=== PATIENT | male | born 1990 | race Caucasian/White ===

== ENCOUNTER 2019-08-30 21:16 | Inpatient (IN) | payer SELFPAY ==
[2019-08-30] MEDS ORDERED: Ondansetron PF 4 MG/2 ML Vial ONE (21:37)
[2019-08-30 22:19] LABS: Hemoglobin 16.9 g/dL (14.0-18.0); Mean Corpuscular HGB CONC 33.4 g/dL (32.0-36.0); Mean Corpuscular Hemoglobin 26.6 pg (27.0-31.0); Mean Corpuscular Volume 79.7 fL (78.0-98.0); Mean Platelet Volume 9.2 fL (7.4-10.4); Platelet Count 304 thou/uL (130-400); Red Blood Cell (RBC) Count 6.34 mill/uL (4.70-6.10); White Blood Cell (WBC) Count 21.9 thou/uL (4.8-10.8)
[2019-08-30 22:27] LABS: Band 18 % (5-11); Lymphocytes 2 % (21-51); MDiff Complete? YES; Monocytes 3 % (0-10); Neutrophil 77 % (42-75); Platelet Morphology Comment Appears Adequate
[2019-08-30 23:04] LABS: Bacteria/HPF 3+ HPF (None Seen); Bilirubin 1+ (Negative); Blood, Urine 2+ (Negative); Clarity Extra Turbid (Clear); Glucose, Urine (Dipstick) Normal (Negative); Leukocyte Negative Leu/uL (Negative); Nitrite Negative (Negative); Protein, Urine (Dipstick) 300 mg/dL (Neg-Trace); Transitional Epithelial 0-3 HPF (None Seen); Urobilinogen 3 mg/dL (Less than 2)
[2019-08-30 23:06] LABS: Albumin 5.9 g/dL (3.5-5.0)
[2019-08-30 23:07] LABS: Chloride 100 mmol/L (98-107); Potassium 5.5 mmol/L (3.5-5.1); Sodium 139 mmol/L (136-145)
[2019-08-30 23:08] LABS: Calcium 10.9 mg/dL (7.8-10.44)
[2019-08-30 23:09] LABS: Glucose 138 mg/dL (70-105); Protein, Total 9.9 g/dL (6.0-8.3)
[2019-08-30 23:10] LABS: Anion Gap 26 mmol/L (10-20); Carbon Dioxide 19 mmol/L (22-29)
[2019-08-30 23:11] LABS: Alkaline Phosphatase 80 U/L (40-110); Bilirubin, Total 1.1 mg/dL (0.2-1.2)
[2019-08-30 23:12] LABS: Calc. Creatinine Clearance 0 mL/min (70-130); Estimated GFR-MDRD 20
[2019-08-30 23:13] LABS: BUN (Urea Nitrogen) 36 mg/dL (8.9-20.6)
[2019-08-30 23:14] LABS: ALT (SGPT) 22 U/L (8-55); AST (SGOT) 23 U/L (5-34)
[2019-08-30 23:15] LABS: CK (CPK) 393 U/L (30-200)
[2019-08-31] MEDS ORDERED: Ondansetron PF 4 MG/2 ML Vial IVP PRN ×2 (00:59→01:57)
[2019-08-31] MEDS ORDERED: Ondansetron ODT 4 MG TAB SL PRN (00:59)
[2019-08-31 01:03] VITALS: BMI 27.2
[2019-08-31] MEDS: Sodium Chloride 0.9% 1,000 ML IV SCH ×3 (01:13→14:33)
[2019-08-31] MEDS ORDERED: Ondansetron ODT 4 MG TAB PO PRN (01:57)
[2019-08-31] MEDS ORDERED: Acetaminophen 650 MG Suppository PR PRN (01:57)
[2019-08-31 03:20] LABS: Lactic Acid 1.1 mmol/L (0.5-2.2)
[2019-08-31 03:25] LABS: Cardiac Risk 3.2 (Less than 4.5)
[2019-08-31 03:42] LABS: #Monocytes 0.8 thou/uL (0.11-0.59); #Neutrophils 9.8 thou/uL (1.40-6.50); %Basophils 0.4 % (0.0-1.0); %Eosinophils 0.3 % (0.0-10.0); %Lymphocytes 8.5 % (21.0-51.0); %Neutrophils 83.9 % (42.0-75.0); Hemoglobin 13.1 g/dL (14.0-18.0); Mean Corpuscular HGB CONC 33.7 g/dL (32.0-36.0); Mean Corpuscular Hemoglobin 27.3 pg (27.0-31.0); Mean Corpuscular Volume 80.9 fL (78.0-98.0); Mean Platelet Volume 9.4 fL (7.4-10.4); Platelet Count 229 thou/uL (130-400); RBC Distribution Width 12.9 % (11.5-14.5); Red Blood Cell (RBC) Count 4.79 mill/uL (4.70-6.10); White Blood Cell (WBC) Count 11.7 thou/uL (4.8-10.8)
[2019-08-31 03:45] LABS: ALT (SGPT) 19 U/L (8-55); AST (SGOT) 23 U/L (5-34); Alkaline Phosphatase 63 U/L (40-110); Anion Gap 18 mmol/L (10-20); BUN (Urea Nitrogen) 31 mg/dL (8.9-20.6); Bilirubin, Total 0.7 mg/dL (0.2-1.2); Calc. Creatinine Clearance 51 mL/min (70-130); Calcium 9.4 mg/dL (7.8-10.44); Carbon Dioxide 22 mmol/L (22-29); Chloride 105 mmol/L (98-107); Estimated GFR-MDRD 34; Globulin 2.9 g/dL (2.4-3.5); Glucose 131 mg/dL (70-105); Potassium 4.7 mmol/L (3.5-5.1); Protein, Total 7.9 g/dL (6.0-8.3); Sodium 140 mmol/L (136-145)
--- NOTE | 2019-08-31 03:49 | HP ---
TIME OF ASSESSMENT: 0200 hours. CHIEF COMPLAINT: Chest pain and vomiting. HISTORY OF PRESENT ILLNESS: Mr. Devlin is a 28-year-old gentleman with history of GERD and prior heavy drug use, who presented to the emergency department today after developing central chest pain followed by intractable nausea and vomiting. The patient states he was working outside today and states it was very humid and hot. In the past, he has had issues with exertional chest pain while working outside. 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 The patient states that the discomfort was in the substernal region and nonradiating and nonreproducible. Denies any associated shortness of breath. He states he thought it was due to reflux and had recently been placed on omeprazole by his primary care doctor, but has not been taking it consistently. He states the vomiting came on suddenly and he later began to experience severe diffuse muscle cramps and decreased urinary output. He denies having any chest pain at this present time. Denies having any cough or hemoptysis. Denies any loose stools. No abdominal pain. Has not had any back pain, flank pain or groin pain. No dysuria. Today, reports being afebrile. Had been feeling well to normal self in recent days. The patient states he has had heavy drug use in the past, but has quit. He used cocaine in high school and more recently quit injecting methamphetamines. Denies having any drug use in the last several weeks. ED COURSE: In the emergency department, the patient had laboratory studies done showing a white count of 21.9, hemoglobin 16.9, hematocrit 50.5, platelets 304, neutrophils 77%, bands 18. Sodium 129, potassium 5.5, bicarb 19, anion gap 26, BUN 26, creatinine at 3.66, GFR 20, glucose 128, calcium 10.9. LFTs normal. CK 393, albumin 5.9. Urinalysis, yellow in appearance and actually turbid, 300 of protein, 10 ketones, 2+ blood, negative for nitrites, 1+, bilirubin, negative for leukocyte esterase, 7 to 10 red blood cells, 11 to 20 white blood cells, 4 to 6 squamous epithelial cells, 3+ bacteria, 7 to 10 hyaline casts, 21 to 50 granular casts. The patient was given IV fluids in the emergency department. He received a total of 3 L of normal saline and was given Zofran 4 mg IV. He was admitted for MARLA. PAST MEDICAL HISTORY: 1. GERD. 2. Previous IV drug use. PAST SURGICAL HISTORY: None. SOCIAL HISTORY: The patient reports drinking socially every week. Denies any current drug use. Denies any tobacco use. 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 FAMILY HISTORY: Noncontributory. ALLERGIES: SULFA. CURRENT MEDICATIONS: Omeprazole. PHYSICAL EXAMINATION: GENERAL: The patient appears well developed, well nourished, is in no acute distress. He is resting comfortably in bed. VITAL SIGNS: Temperature 99.2, pulse 71, respirations 18, O2 saturation 97% on room air, blood pressure 144/78. HEENT: Normocephalic and atraumatic. Pupils are equal, round, and reactive to light. Sclerae icterus. Oropharynx is clear. NECK: Supple. LUNGS: Clear to auscultation bilaterally without wheezes, rales, or rhonchi. CARDIAC: Regular rate and rhythm. ABDOMEN: Soft, nontender, nondistended. Normoactive bowel sounds present. No guarding or rigidity. No renal angle tenderness. EXTREMITIES: No lower leg swelling or edema. NEUROLOGIC: Alert and oriented x3. SKIN: Warm and dry. IMPRESSION AND PLAN: Mr. Devlin is a 28-year-old gentleman who is being admitted for management of the followin. Acute renal failure. The patient with a GFR of 20, creatinine of 3.66 attributed to severe dehydration/vomiting. The patient received 3 L of normal saline in the emergency department. No previous laboratory studies to compare to. Given degree of renal dysfunction, CT stone protocol ordered to rule out any obstructive uropathy or abnormal renal disease. Continue to monitor renal function. Continue IV fluids. Consultation placed to Nephrology. 2. Chest pain. We will obtain a troponin. We will also obtain routine chest x-ray. Given history of drug use including cocaine, we will go ahead and check urine drug screen. We will add a BNP. Continuous cardiac monitoring. We will obtain a baseline EKG. The patient is pain-free at present. Check TSH with morning labs. Lipid panel with morning labs as well. We will give baby aspirin and continue daily aspirin. Consider echocardiogram. We will keep patient n.p.o. 3. Hyperkalemia. The patient has received 3 L of normal saline. We will repeat electrolytes. 4. Gastroesophageal reflux disease. We will continue with famotidine 20 mg IV b.i.d. 5. Deep venous thrombosis prophylaxis. The patient is ambulatory. Mechanical SCDs ordered. 6. Code status full. His surrogate decision maker is his mother. Case discussed with Dr. Luna. Job ID: [id number]
[2019-08-31 04:14] LABS: CKMB 6.6 ng/mL (0-6.6)
[2019-08-31 05:04] LABS: Medtox Reader # READER 1
[2019-08-31 05:05] LABS: Amphetamine Not Detected (NotDetected); Barbiturates Screen Not Detected (NotDetected); Benzodiazepine Screen Not Detected (NotDetected); Cocaine Metabolite Screen Not Detected (NotDetected); Medtox Control Line Valid? VALID (VALID); Methadone Not Detected (NotDetected); Methamphetamine Not Detected (NotDetected); Opiate Screen Not Detected (NotDetected); Oxycodone Screen Not Detected (NotDetected); Phencyclidine (PCP) Not Detected (NotDetected); THC/Cannabinoid Screen Detected (NotDetected); Tricyclic Screen Not Detected (NotDetected)
[2019-08-31] MEDS: Acetaminophen 325 MG TAB PO PRN ×2 (09:53→14:34)
[2019-08-31] MEDS: Famotidine/PF 20 mg/2ml Vial SLOW IVP SCH (09:56)
[2019-08-31 10:00] LABS: CKMB 10.5 ng/mL (0-6.6)
--- NOTE | 2019-08-31 10:07 | CT ---
PRELIMINARY REPORT/[facility]/AFTER HOURS PROCEDURE CT STONE PROTOCOL: HISTORY: Pt c/o lower back pain; eval for possible obstructive uropathy. COMPARISON: None. FINDINGS: The lung bases are clear. No acute abnormality of the unopacified liver, gallbladder, spleen or pancreas. No adrenal nodule. No renal, ureteral or bladder stone. No hydronephrosis or hydroureter. No bowel obstruction. No mural thickening. Ingested hyperdense pill within the distal ileum. The appendix is normal. No focal fluid collections or intraperitoneal free air. No acute osseous abnormality. IMPRESSION: No acute intra-abdominal pathology. ELECTRONICALLY SIGNED BY: Cecil Tan MD Aug 31, 2019 2:25:28 AM CDT This report is intended for review by the ordering physician only, in accordance of law. If you recei ve this report in error, please call [facility] at [phone]. FINAL REPORT CT ABDOMEN AND PELVIS WITHOUT IV CONTRAST: FINDINGS: No acute intra-abdominal process. I am in agreement with the preliminary report. CODE QA POS: CATHI
--- NOTE | 2019-08-31 10:51 | RAD ---
FRONTAL AND LATERAL CHEST: 08/31/2019 HISTORY: Chest pain. COMPARISON: None. FINDINGS: There is no pneumothorax, pleural fluid, focal consolidation or alveolar edema. IMPRESSION: No focal consolidation or alveolar edema. POS: LORNE
[2019-08-31] MEDS ORDERED: Non-Formulary Item 1 EACH (Omeprazole [Omeprazole] 20 MG) PO PRN (12:14)
--- NOTE | 2019-08-31 17:22 | PDOC.EVN ---
Event Note - Event Note Event Note: Chart reviewed. Pt seen. Feels better. No chest pain. VSS S1, S2, reg Lungs CTA Etiology of elevated troponin unclear, check 2D echo. Continue IV fluids for dehydration/MARLA/rhando.
--- NOTE | 2019-08-31 19:03 | CON ---
DATE OF CONSULTATION: 08/31/2019 CONSULTING PHYSICIAN: Ramila Magallon PA-C REASON FOR CONSULTATION: Acute kidney injury. REASON FOR ADMISSION: Chest pain, vomiting. HISTORY OF PRESENT ILLNESS: This is a 28-year-old male with history of GERD, drug abuser, who came to the hospital with above complaints and was found to have elevated creatinine. 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 He was continue to work and started having these symptoms and was brought to the hospital and was found to have a creatinine of 3.6. The patient is feeling better. He was started on IV fluids. PAST MEDICAL HISTORY: Positive for GERD and previous drug abuser. PAST SURGICAL HISTORY: None. HOME MEDICATIONS: Reviewed. ALLERGIES: SULFA. SOCIAL HISTORY: No smoking, alcohol, or illicit drug abuse. FAMILY HISTORY: No history of kidney disease. REVIEW OF SYSTEMS: CONSTITUTIONAL: Negative for weight loss or gain, ability to conduct usual activities. SKIN: Negative for rash, itching. EYES: Negative for double vision, pain. ENT/MOUTH: Negative for nose bleeding, neck stiffness, pain, tenderness. CARDIOVASCULAR: Negative for palpitations, dyspnea on exertion, orthopnea. RESPIRATORY: Negative for shortness of breath, wheezing, cough, hemoptysis, fever or night sweats. GASTROINTESTINAL: Negative for poor appetite, abdominal pain, heartburn, nausea, vomiting, constipation, or diarrhea. GENITOURINARY: Negative for urgency, frequency, dysuria, nocturia. MUSCULOSKELETAL: Negative for pain, swelling. NEUROLOGIC/PSYCHIATRIC: Negative for anxiety, depression. ALLERGY/IMMUNOLOGIC: Negative for skin rash, bleeding tendency. PHYSICAL EXAMINATION: GENERAL: Reveals a well-built male, in no apparent distress. VITAL SIGNS: Temperature 97.5, pulse 79, respiratory rate 16, and blood pressure 120/56. HEENT: Atraumatic, normocephalic. Oral mucosa moist. NECK: Supple. CV: S1 and S2. Rate and rhythm regular. RESPIRATORY: Clear. GASTROINTESTINAL: Abdomen is soft. MUSCULOSKELETAL: 1+ edema. DERMATOLOGIC: No skin rash. NEUROLOGIC: Alert and awake. PSYCHIATRIC: Normal mood and affect. LABORATORY DATA: Hemoglobin is 13.1. Potassium 4.7, BUN is 31, and creatinine is 2.2. ASSESSMENT AND PLAN: 1. Acute kidney injury, most likely from volume depletion. Creatinine getting better with IV fluids. 2. Edema, controlled. 3. Hypertension, stable. 4. Drug abuse. 5. Mild anemia. 6. Pyuria. Rule out any infection. Abdominal CT with no obstruction. No calculi. No intraabdominal pathology. Continue IV fluids. Monitor renal function. Job ID: [id number]
[2019-09-01] MEDS: Sodium Chloride 0.9% 1,000 ML IV SCH ×2 (03:22→09:55)
[2019-09-01 03:58] LABS: #Basophils 0.1 thou/uL (0.0-0.2); #Eosinphils 0.1 thou/uL (0.0-0.7); #Lymphocytes 3.6 thou/uL (1.20-3.40); #Neutrophils 3.8 thou/uL (1.40-6.50); %Basophils 0.8 % (0.0-1.0); %Eosinophils 1.2 % (0.0-10.0); %Lymphocytes 42.4 % (21.0-51.0); %Monocytes 11.7 % (0.0-10.0); %Neutrophils 43.9 % (42.0-75.0); Hemoglobin 12.7 g/dL (14.0-18.0); Mean Corpuscular HGB CONC 32.8 g/dL (32.0-36.0); Mean Corpuscular Hemoglobin 27.4 pg (27.0-31.0); Mean Corpuscular Volume 83.6 fL (78.0-98.0); Mean Platelet Volume 8.7 fL (7.4-10.4); Platelet Count 207 thou/uL (130-400); Red Blood Cell (RBC) Count 4.61 mill/uL (4.70-6.10); White Blood Cell (WBC) Count 8.5 thou/uL (4.8-10.8)
[2019-09-01 04:23] LABS: Anion Gap 12 mmol/L (10-20); BUN (Urea Nitrogen) 16 mg/dL (8.9-20.6); CK (CPK) 1137 U/L (30-200); Calc. Creatinine Clearance 129 mL/min (70-130); Calcium 8.4 mg/dL (7.8-10.44); Carbon Dioxide 24 mmol/L (22-29); Chloride 108 mmol/L (98-107); Estimated GFR-MDRD Greater than 90; Glucose 92 mg/dL (70-105); Potassium 4.6 mmol/L (3.5-5.1); Sodium 139 mmol/L (136-145)
[2019-09-01] MEDS: Famotidine/PF 20 mg/2ml Vial SLOW IVP SCH (08:16)
[2019-09-01] MEDS: Acetaminophen 325 MG TAB PO PRN (10:28)
[2019-09-01 11:33] VITALS: BP 126/63; TEMP 97.3
--- NOTE | 2019-09-01 11:54 | EKG ---
Test Reason : Blood Pressure : / mmHG Vent. Rate : 088 BPM Atrial Rate : 088 BPM P-R Int : 142 ms QRS Dur : 094 ms QT Int : 356 ms P-R-T Axes : 023 079 034 degrees QTc Int : 430 ms Normal sinus rhythm Normal ECG Confirmed by INGE COLEMAN ([id number]), index editor SNOW ASCENCIO ([id number]) on 09/01/2019 11:54:18 AM Referred By: Confirmed By:INGE COLEMAN
--- NOTE | 2019-09-01 13:44 | DIS ---
DATE OF ADMISSION: 08/31/2019 DATE OF DISCHARGE: 09/01/2019 PRIMARY CARE PROVIDER: Leighton Pretty. DISCHARGE DIAGNOSES: 1. Acute kidney injury. 2. Dehydration. 3. Rhabdomyolysis. CONDITION: Condition of the patient on the day of discharge: Stable. I assessed Mr. Devlin on the day of discharge. He denies any chest pain or shortness of breath. Vital signs are stable. S1 and S2 are heard, regular. Lungs are clear to auscultation bilaterally. CONSULTATIONS DURING THIS HOSPITALIZATION: Nephrology, Dr. Augustine. HOSPITAL COURSE: Mr. Devlin is a pleasant 28-year-old gentleman, who was admitted to [facility] on August 31, 2019, for dehydration and acute kidney injury. He also had indeterminate troponin, which normalized. He also had hyperkalemia. He was seen by Nephrology Service. He improved with intravenous fluids. Urine toxicology screen at the time of admission was positive for cannabinoids. He has been advised to stop recreational drug use. 2D echo is done and the report is pending at the time of this dictation. He will be advised to follow up with primary care provider for final 2D echocardiogram report. Many thanks for allowing me to participate in your patient's care. Please feel free to contact me with any questions or concerns. DISCHARGE DESTINATION: Home. DIET: Regular. POST-ACUTE CARE FOLLOWUP: With primary care provider in 3 days and with Nephrology Service in 2 weeks. TIME SPENT: Total amount of time spent in coordinating this discharge: 32 minutes. Job ID: [id number]
--- NOTE | 2019-09-01 14:05 | PRG ---
DATE OF SERVICE: 09/01/2019 SUBJECTIVE: A 28-year-old gentleman, being seen for acute kidney injury. The patient denies any nausea, vomiting, or chest pain. PHYSICAL EXAMINATION: GENERAL: The patient is awake and alert. VITAL SIGNS: Afebrile, pulse 75, breathing at 16, blood pressure 96/63. HEENT: Head normocephalic and atraumatic. Eyes intact, no ulcers. Nose intact, no ulcers. Ears intact, no ulcers. NECK: Supple. No JVD. CHEST: Symmetrical and clear. CARDIOVASCULAR: Shows S1 and S2, no rub, no murmur. GASTROINTESTINAL: Abdomen is soft, bowel sounds positive. EXTREMITIES: Show no edema or ulcers. SKIN: Shows no rash or petechiae. MUSCULOSKELETAL: Shows no joint swelling or stiffness. GENITOURINARY: Shows no Gonzalez or CVA tenderness. NEUROLOGIC: Motor intact. Cranial nerves intact. LABORATORY DATA: Labs showed hemoglobin 12.7. Creatinine 0.9. ASSESSMENT AND PLAN: 1. Acute kidney injury, stable. 2. Hypertension, stable. 3. Anemia, stable. 4. Medication based on GFR appropriate. I will sign off. Please reconsult as needed. Job ID: [id number]
== END 2019-09-01 13:29 | disposition home or self-care (01) | DRG 683 ==
LOC: ERS 21:16 → OBSVTOIN 08-31 01:00 → 2NO 08-31 01:00
PROVIDERS: ADMIT Internal Medicine; ATTEND Internal Medicine
DX: N17.9 Acute kidney failure, unspecified (principal); M62.82 Rhabdomyolysis; E86.0 Dehydration; E87.5 Hyperkalemia; K21.9 Gastro-esophageal reflux disease without esophagitis; E86.9 Volume depletion, unspecified; R82.81 Pyuria; D64.9 Anemia, unspecified; R79.89 Other specified abnormal findings of blood chemistry; Z79.899 Other long term (current) drug therapy; Z88.2 Allergy status to sulfonamides
CPT/HCPCS: 36415; 51798; 71046; 74176; 80048; 80053; 80061; 80306; 81003; 81015; 82550; 82553; 83605; 83690; 83880; 84443; 84484; 85025; 87040; 87086; 93005; 93306; 96376; G0378; J2405; S0028